=== PATIENT | male | born 1980 ===

== ENCOUNTER 2018-08-01 13:23 | Emergency (ER) | payer OTHER ==
[2018-08-01 13:39] VITALS: TEMP 98.7
--- NOTE | 2018-08-01 13:55 | C.PDOC ---
History Of Present Illness 37 year old male with no past medical history presents to the emergency department with complaints of cough for one week and left ear pain for the last two days. Patient states that the cough is productive with yellow/green sputum, and describes the left ear pain as sharp, constant, and associated with mild hearing loss. Patient states that he has not taken medications for the symptoms, and that he has not received a flu shot. He denies sick contact, recent travel, antibiotic use, fever, chills, chest pain, shortness of breath, abdominal pain, nausea, vomiting, diarrhea, headache, or any other associated symptoms. Time Seen by Provider: 08/01/18 13:40 Chief Complaint (Nursing): ENT Problem History Per: Patient History/Exam Limitations: None Onset/Duration Of Symptoms: Days (ear pain: 2 days), Other (cough: 1 week) Current Symptoms Are (Timing): Still Present Quality (Ear): Other (pain, hearing loss) Symptoms Have Been: Continuous Anticoagulant/Antiplatlet Use?: No Recent Aspirin Use: No Past Medical History Reviewed: Historical Data, Nursing Documentation, Vital Signs Vital Signs: Last Vital Signs Temp 98.7 F 08/01/18 13:37 Pulse 66 08/01/18 13:37 Resp 20 08/01/18 13:37 BP 138/79 08/01/18 13:37 Pulse Ox 97 08/01/18 13:37 - Medical History PMH: No Chronic Diseases Surgical History: No Surg Hx Family History: States: No Known Family Hx - Social History Hx Alcohol Use: No Hx Substance Use: Yes Review Of Systems Except As Marked, All Systems Reviewed And Found Negative. Constitutional: Negative for: Fever, Chills ENT: Positive for: Ear Pain, Other (decreased hearing). Negative for: Ear Discharge, Nose Pain, Throat Pain, Throat Swelling Cardiovascular: Negative for: Chest Pain, Palpitations, Light Headedness Respiratory: Positive for: Cough. Negative for: Shortness of Breath Gastrointestinal: Negative for: Nausea, Vomiting, Abdominal Pain, Diarrhea, Constipation Musculoskeletal: Negative for: Neck Pain, Shoulder Pain, Back Pain Skin: Negative for: Rash Neurological: Negative for: Weakness, Numbness, Seizures, Headache, Dizziness Physical Exam - Physical Exam Appears: Well, Non-toxic, No Acute Distress Skin: Warm, Dry Head: Atraumatic, Normacephalic Eye(s): bilateral: Normal Inspection, PERRL, EOMI Ear(s): Left: TM Erythema, TM Dull, Other (TM red and bulging. No mastoid tenderness or bogginess.), Right: Normal Nose: Normal Oral Mucosa: Moist Lips: Normal Appearing Throat: Normal, No Erythema, No Exudate Neck: Normal, Supple Chest: Symmetrical, No Tenderness Cardiovascular: Rhythm Regular, No Murmur Respiratory: Normal Breath Sounds, No Rales, No Rhonchi, No Wheezing Extremity: Normal ROM Neurological/Psych: Oriented x3 ED Course And Treatment O2 Sat by Pulse Oximetry: 97 (RA) Pulse Ox Interpretation: Normal - Other Rad CXR X-Ray: Viewed By Me, Read By Radiologist Interpretation: IMPRESSION: No focal consolidation. 1.8 x 0.4 cm oblong radiopaque density is noted at the soft tissues of the mid back appearing external to the patient. Additionally this structure is noted along the lateral left chest. Correlate clinically. Medical Decision Making Medical Decision Making: Plan: * CXR * Augmentin Diagnostic testing results and plan of care discussed with patient. Strict instructions given regarding importance of followup, prescription use, and signs/symptoms to return, including fever, chills, vision changes, headache, N/ V, chest pain or any other new/worsening symptoms. Patient verbalized understanding of discussion. Patient ambulating with steady gait, A&Ox3, with vitals signs stable for discharge. Disposition - Disposition Referrals: [facility] at [facility] [Outside] Guillaume Combs DO [[facility]] - Disposition: HOME/ ROUTINE Disposition Time: 15:38 Condition: GOOD Additional Instructions: Aumentar los fluidos [place], no actividad vigorosa. [place] antibiticos cada 12 horas james 10 erazo. Seguimiento con ENT y mdico primario en 2 erazo. Regrese a la jeanne de emergencias para cualquier sntoma nuevo / que empeora. Prescriptions: Amoxicillin/Clavulanate [Augmentin 875 MG-125 MG] 1 tab PO Q12H #20 tab Ibuprofen [Motrin Tab] 600 mg PO Q8H PRN #30 tab PRN Reason: Pain, Moderate (4-7) Instructions: Ear Infections (Otitis Media) Forms: [employer] (Japanese) Print Language: GIBRALTARIAN - Clinical Impression Clinical Impression: Otitis media - PA / HOT PATCHER / Resident Statement MD/DO has reviewed & agrees with the documentation as recorded. - Scribe Statement The provider has reviewed the documentation as recorded by the Scribe (Derrick Leonard) All medical record entries made by the Scribe were at my direction and pe rsonally dictated by me. I have reviewed the chart and agree that the record accurately reflects my personal performance of the history, physical exam, medical decision making, and the department course for this patient. I have also personally directed, reviewed, and agree with the discharge instructions and disposition.
--- NOTE | 2018-08-01 15:41 | RAD ---
HISTORY: productive cough, rule out pneumonia COMPARISON: None available. TECHNIQUE: Chest PA and lateral FINDINGS: 1.8 x 0.4 cm oblong radiopaque density is noted at the soft tissues of the mid back appearing external to the patient. Additionally this structure is noted along the lateral left chest. Correlate clinically. LUNGS: No focal consolidation. Please note that chest x-ray has limited sensitivity for the detection of pulmonary masses. PLEURA: No significant pleural effusion identified. No definite pneumothorax . CARDIOVASCULAR: Heart size appears within normal limits. No atherosclerotic calcification present. OSSEOUS STRUCTURES: No acute osseous abnormality identified. VISUALIZED UPPER ABDOMEN: Unremarkable. OTHER FINDINGS: None. IMPRESSION: No focal consolidation. 1.8 x 0.4 cm oblong radiopaque density is noted at the soft tissues of the mid back appearing external to the patient. Additionally this structure is noted along the lateral left chest. Correlate clinically.
[2018-08-01] MEDS: Amoxicillin-Clav 875-125 mg Tab PO STA (15:48)
[2018-08-01] MEDS ORDERED: Amoxicillin-Clav 875-125 mg Tab PO ONE (15:50)
[2018-08-01 15:53] VITALS: BP 128/72; PULSE 68; RESP 18
[2018-08-01 19:05] VITALS: O2SAT 97
== END 2018-08-01 15:53 | disposition home or self-care (01) ==
LOC: C.ER 13:23
DX: H66.92 Otitis media, unspecified, left ear (principal)